=== PATIENT | female | born 1985 | race Caucasian/White ===

== ENCOUNTER 2017-08-22 14:39 | Emergency (ER) | payer BC ==
[~2017-08-22] VITALS: Ht 165.1 cm; Wt 55.4 kg
[~2017-08-22 14:39] MED LIST: ALPR1TAB3 PO; ALUMCHW2 PO; CALC500C3 PO; CYAN10002 IM; CYCL10TA6 PO; CYM/30 PO; FERR1TAB62 PO; OXYC-57 PO; PREN-83 PO; RANI150T3 PO
[2017-08-22 14:43] VITALS: Ht 165.1 cm; Wt 55.4 kg
[2017-08-22] MEDS ORDERED: SODIUM CHLORIDE 0.9% 1000ML 1,000 ML IV STA (15:31)
[2017-08-22] MEDS ORDERED: FAMOTIDINE 20MG/5ML IV PUSH IV STA (15:31)
[2017-08-22] MEDS ORDERED: PANTOprazole INJ 80 MG in DEXTROSE 5% 100ML 100 ML IV ONE (15:45)
[2017-08-22 15:51] VITALS: O2SAT 100
[2017-08-22] MEDS ORDERED: CYNI1000 INJ (16:30)
[2017-08-22] MEDS ORDERED: MULTTAB58 PO (16:30)
[2017-08-22 16:50] LABS: BASO % 0.2 %; BASO ABS # 0.01 K/uL (0-0.2); COMPLETE YES; EOS % 2.1 %; HEMATOCRIT 32.1 % (37-47); LYMPH % 47.1 %; LYMPH ABS # 2.21 K/uL (1.2-3.4); MEAN CELL VOLUME 90.9 fL (80-100); MEAN CORPUSCULAR HGB CONC 30.8 g/dl (32-36); MEAN PLATELET VOLUME 10.3 fL (7.4-10.4); MONO % 8.5 %; NEUT % 42.1 %; PLATELET COUNT 259 K/uL (130-400); RED BLOOD COUNT 3.53 M/uL (4.2-5.4); WHITE BLOOD COUNT 4.69 K/uL (4.8-10.8)
[2017-08-22 17:00] LABS: PROTHROMBIN TIME (PATIENT) 11.1 SECONDS (9.0-12.0)
[2017-08-22 17:17] LABS: ALT/SGPT 30 U/L (12-78); AST/SGOT 36 U/L (15-37); BLOOD UREA NITROGEN 11 mg/dl (7-18); BUN/CREATININE RATIO 26.3 (10-20); CALCIUM 7.9 mg/dl (8.5-10.1); CARBON DIOXIDE 30 mmol/L (21-32); CHLORIDE 104 mmol/L (98-107); CREATININE 0.42 mg/dl (0.60-1.20); GLUCOSE 72 mg/dl (70-99); POTASSIUM 4.3 mmol/L (3.5-5.1); SODIUM 136 mmol/L (136-145)
[2017-08-22 17:20] LABS: ALKALINE PHOSPHATASE 79 U/L (45-117)
--- NOTE | 2017-08-22 17:58 | DIAGNOSTIC IMAGING REPORT ---
ABDOMEN 2VIEW W/PA CHEST RTN HISTORY: 32 years-old Female EVALUATE GI BLEED/OBSTRUCTION SERIES acute GI bleed COMPARISON: Chest radiograph 05/29/2016, CT 05/30/2016 TECHNIQUE: PA view of the chest with erect and supine views of the abdomen FINDINGS: Cardiomediastinal and hilar silhouettes are within normal limits. There is no pneumothorax, pleural effusion, focal airspace consolidation or overt pulmonary edema. Bones of the chest appear grossly intact. Cholecystectomy clips are noted. Suture material the left upper abdomen compatible with patient history of prior gastric bypass. There is moderate volume of formed stool throughout the colon. Mild gaseous distention of bowel within the right lower quadrant noted, likely large bowel. The bowel gas pattern overall appears nonobstructive. No pneumoperitoneum on the upright projection. No urolith. IMPRESSION: 1. No acute cardiopulmonary process. 2. Nonobstructive bowel gas pattern without pneumoperitoneum. 3. Mild gaseous distention of bowel within the right lower quadrant. 4. Moderate stool volume suggests constipation. The above report was generated using voice recognition software. It may contain grammatical, syntax or spelling errors. Electronically signed by: Marcos Hair M.D. 08/22/2017 5:57 PM Dictated Date/Time: 08/22/2017 5:54 PM
[2017-08-22 19:29] VITALS: BP 102/56; PULSE 76; TEMP 37.1; O2SAT 100
--- NOTE | 2017-08-23 00:23 | EMERGENCY ROOM VISIT NOTE ---
History First contact with patient: 15:15 Chief Complaint: ABDOMINAL PAIN Stated Complaint: STOMACH PAIN, FATIGUE History of Present Illness The patient is a 32 year old female who presents to the Emergency Room with complaints of a possible GI bleed, fatigue, nausea, vomiting and epigastric pain. The patient reports that she has had a prior history of gastric bypass surgery approximately 8 years ago. She has had for GI bleeds in the past 4 years. Her last endoscopy was in May and August of last year. Her last 2 GI bleeds have required blood transfusions. Her gastric bypass was performed by Dr. Kiran at [facility] in [place]. She follows up locally with Dr. Galdamez. The patient reports fatigue and leg weakness. She has been unable to keep her medicines down because of nausea and vomiting, and reports feeling extremely dehydrated. She denies any fevers or chills, chest pain or cough. She denies any significant pain radiating into the back. Her stools have been melanotic. She has decreased well put because of her prior history of gastric pouch and poor intake recently. She reports that the pain is constant, and rates her discomfort a 6 out of 10. Review of Systems HEENT: Denies visual problems, hearing loss, tinnitus. Denies difficulty swallowing or oral lesions. PULMONARY: Denies cough, shortness of breath, sputum production or hemoptysis. CARDIOVASCULAR: Denies chest pain, palpitations, dyspnea on exertion, orthopnea or peripheral edema. GASTROINTESTINAL: See history of present illness. GENITOURINARY: Denies dysuria, frequency, urgency or nocturia. NEUROLOGIC: Denies history of epilepsy, CVA, TIA or chronic headaches. MUSCULOSKELETAL: Denies history of joint tenderness/swelling. SKIN: Denies rashes or lesions. PSYCHIATRIC: Denies history of depression or mental illness. ENDOCRINE: Denies history of diabetes or thyroid disorders. Past Medical/Surgical History Medical Problems: (1) Symptomatic anemia (2) Ulcer (3) Upper GI bleed Surgical Problems: (1) History of cholecystectomy (2) S/P gastric bypass Family History Diabetes mellitus FH: gallbladder disease Hypertension Social History Smoking Status: Current Every Day Smoker Alcohol Use: none Drug Use: none Marital Status: Housing Status: lives with family Occupation Status: employed Current/Historical Medications Scheduled Cyanocobalamin (Cyanocobalamin), 1,000 MCG INJ Q3MO Duloxetine HCl (Cymbalta), 30 MG PO QAM Ferrous Sulfate (Ferrous Sulfate), 325 MG PO BID Multiple Vitamin (Multivitamin), 1 TAB PO DAILY Ranitidine Hcl (Zantac), 150 MG PO BID Scheduled PRN Alprazolam (Xanax), 1 MG PO BID PRN for Anxiety Cyclobenzaprine Hcl (Flexeril), 10 MG PO TID PRN for Muscle Spasm Allergies Coded Allergies: No Known Allergies (Unverified , 08/22/17) Physical Exam Vital Signs Date Time Temp Pulse Resp B/P (MAP) Pulse Ox O2 Delivery O2 Flow Rate FiO2 08/22/17 19:29 37.1 76 16 102/56 100 08/22/17 18:33 76 16 102/56 100 Room Air 08/22/17 17:00 79 16 98/49 100 Room Air 08/22/17 16:46 80 15 110/49 98 Room Air 08/22/17 16:14 82 08/22/17 15:51 100 Room Air 08/22/17 14:43 37.1 113 18 103/53 98 Room Air Physical Exam CONSTITUTIONAL: Healthy and well nourished. Alert and oriented X 3 with positive affect. Patient appears in mild discomfort. HEENT: Normocephalic, atraumatic. Pupils equal, round and reactive. No scleral icterus. Conjunctivae are pale. OROPHARYNX: Mucous membranes are dry. No posterior pharyngeal erythema or tonsillar hypertrophy/exudates. NECK: Full active range of motion without discomfort. No nuchal rigidity. RESPIRATORY: Clear to auscultation bilaterally with no wheezing, crackles, rhonchi or stridor. CARDIOVASCULAR: Tachycardic with no murmurs, rubs or gallops. GASTROINTESTINAL: Bowel sounds present in all quadrants. Patient has epigastric tenderness to palpation without obvious hepatosplenomegaly or other palpable masses. No hypertympany or fluid wave. No abdominal rigidity, guarding or rebound. Negative CVA tenderness. Negative McBurney's point tenderness. Stool Hemoccult was performed by me and was positive. MUSCULOSKELETAL: Full range of motion of all joints without discomfort. INTEGUMENTARY: No rash or other significant dermatologic conditions noted. HEMATOLOGIC: No ecchymosis or petechiae. NEUROLOGIC: No focal neurologic deficits noted. Medical Decision & Procedures ER Provider Diagnostic Interpretation: My interpretation of an ECG shows a normal sinus rhythm of [address] elevation or other conduction abnormality. My interpretation of an abdomen obstruction series with a PA chest does not show any pneumoperitoneum or evidence for obstruction. The patient does have moderate constipation. Radiologist report is as follows: ABDOMEN 2VIEW W/PA CHEST RTN HISTORY: 32 years-old Female EVALUATE GI BLEED/OBSTRUCTION SERIES acute GI bleed COMPARISON: Chest radiograph 05/29/2016, CT 05/30/2016 TECHNIQUE: PA view of the chest with erect and supine views of the abdomen FINDINGS: Cardiomediastinal and hilar silhouettes are within normal limits. There is no pneumothorax, pleural effusion, focal airspace consolidation or overt pulmonary edema. Bones of the chest appear grossly intact. Cholecystectomy clips are noted. Suture material the left upper abdomen compatible with patient history of prior gastric bypass. There is moderate volume of formed stool throughout the colon. Mild gaseous distention of bowel within the right lower quadrant noted, likely large bowel. The bowel gas pattern overall appears nonobstructive. No pneumoperitoneum on the upright projection. No urolith. IMPRESSION: 1. No acute cardiopulmonary process. 2. Nonobstructive bowel gas pattern without pneumoperitoneum. 3. Mild gaseous distention of bowel within the right lower quadrant. 4. Moderate stool volume suggests constipation. Laboratory Results 08/22/17 16:24 Red Blood Count 3.53, Mean Corpuscular Volume 90.9, Mean Corpuscular Hemoglobin 28.0, Mean Corpuscular Hemoglobin Concent 30.8, Mean Platelet Volume 10.3, Neutrophils (%) (Auto) 42.1, Lymphocytes (%) (Auto) 47.1, Monocytes (%) (Auto) 8.5, Eosinophils (%) (Auto) 2.1, Basophils (%) (Auto) 0.2, Neutrophils # (Auto) 1.97, Lymphocytes # (Auto) 2.21, Monocytes # (Auto) 0.40, Eosinophils # (Auto) 0.10, Basophils # (Auto) 0.01 08/22/17 16:24 Test 08/22/17 16:24 White Blood Count 4.69 K/uL (4.8-10.8) Red Blood Count 3.53 M/uL (4.2-5.4) Hemoglobin 9.9 g/dL (12.0-16.0) Hematocrit 32.1 % (37-47) Mean Corpuscular Volume 90.9 fL (80-100) Mean Corpuscular Hemoglobin 28.0 pg (25-34) Mean Corpuscular Hemoglobin Concent 30.8 g/dl (32-36) Platelet Count 259 K/uL (130-400) Mean Platelet Volume 10.3 fL (7.4-10.4) Neutrophils (%) (Auto) 42.1 % Lymphocytes (%) (Auto) 47.1 % Monocytes (%) (Auto) 8.5 % Eosinophils (%) (Auto) 2.1 % Basophils (%) (Auto) 0.2 % Neutrophils # (Auto) 1.97 K/uL (1.4-6.5) Lymphocytes # (Auto) 2.21 K/uL (1.2-3.4) Monocytes # (Auto) 0.40 K/uL (0.11-0.59) Eosinophils # (Auto) 0.10 K/uL (0-0.5) Basophils # (Auto) 0.01 K/uL (0-0.2) RDW Standard Deviation 52.2 fL (36.4-46.3) RDW Coefficient of Variation 15.7 % (11.5-14.5) Immature Granulocyte % (Auto) 0.0 % Immature Granulocyte # (Auto) 0.00 K/uL (0.00-0.02) Prothrombin Time 11.1 SECONDS (9.0-12.0) Prothromb Time International Ratio 1.0 (0.9-1.1) Activated Partial Thromboplast Time 25.1 SECONDS (21.0-31.0) Partial Thromboplastin Ratio 1.0 Anion Gap 2.0 mmol/L (3-11) Est Creatinine Clear Calc Drug Dose 165.1 ml/min Estimated GFR () > 150.0 Estimated GFR (Non- 133.7 BUN/Creatinine Ratio 26.3 (10-20) Calcium Level 7.9 mg/dl (8.5-10.1) Total Bilirubin 0.2 mg/dl (0.2-1) Direct Bilirubin 0.1 mg/dl (0-0.2) Aspartate Amino Transf (AST/SGOT) 36 U/L (15-37) Alanine Aminotransferase (ALT/SGPT) 30 U/L (12-78) Alkaline Phosphatase 79 U/L (45-117) Total Creatine Kinase 120 U/L (26-192) Total Protein 5.2 gm/dl (6.4-8.2) Albumin 2.7 gm/dl (3.4-5.0) Lipase 223 U/L (73-393) The above labs were reviewed. Hemoglobin is 9.9. The patient has no increased white count. BUN and creatinine are normal. Coagulopathy studies are also normal. Medications Administered Medications (Trade) Dose Ordered Sig/Dc Route Start Time Stop Time Status Last Admin Dose Admin Sodium Chloride 1,000 ml @ 999 mls/hr Q1H1M STAT IV 08/22/17 15:31 08/22/17 16:31 DC 08/22/17 16:44 999 MLS/HR Famotidine (Pepcid 20mg Iv Push) 20 mg ONE STAT IV 08/22/17 15:31 08/22/17 15:35 DC 08/22/17 16:45 20 MG Pantoprazole Sodium 80 mg/ Dextrose 120 ml @ 400 mls/hr NOW ONCE IV 08/22/17 15:45 08/22/17 16:02 DC 08/22/17 16:45 400 MLS/HR Procedure 1. IV hydration: Normal saline 1 L bolus 2. IV medications: Pepcid 20 mg and Protonix 80 mg IV push ED Course Patient history and physical exam were performed. Nurse's notes were reviewed. Vital signs were reviewed, showing a blood pressure of 103/53. The patient is tachycardic at 113 bpm. O2 saturation and oral temperature are normal. IV access was established, and labs were drawn. The patient was hydrated with normal saline, and was administered IV Protonix and Pepcid. The patient refused any analgesics or antiemetics. ECG and abdomen obstruction series with a PA chest view were normal, showing no evidence for obstruction. The patient does have moderate constipation. Review of labs shows a hemoglobin of 9.9, otherwise remaining labs, including creatinine are normal. The case was then further discussed with Dr. Yadav, ED attending physician and Dr. Galdamez. He agrees that the patient does not warrant emergent EGD studies. He suggested MiraLAX use, and close follow-up with Dr. Galdamez. This information was relayed back to the patient, who will call Dr. Galdamez's office tomorrow. She was instructed to return to the emergency department for any progressively worsening pain or other concerning symptoms such as palpitations, chest pain, profuse rectal bleeding or coffee-ground emesis. 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 She reports that she would rather take Zantac at this point. Medical Decision Patient presents to the emergency department with complaint of symptomatic rectal bleeding. It is noted that her hemoglobin today is 9.9, which is actually improved since her last testing last week. She does have a positive stool Hemoccult, certainly concerning for a gastric ulcer. She also has constipation on x-rays which may also be factoring into her pain. I do feel that the patient is safe for outpatient GI follow-up and probable repeat nonemergent EGD. She was instructed to return to the emergency department for any worsening symptoms. [place] Drug Monitoring Program Search Results: patient reviewed within database, no issues identified Impression Primary Impression: Upper GI bleed Additional Impression: Constipation Departure Information Referrals No Doctor, Assigned (PCP) Patient Instructions My [facility] Problem Qualifiers Additional Impression: Constipation Constipation type: other constipation type Qualified Codes: K59.09 - Other constipation
== END 2017-08-22 19:30 | disposition home or self-care (01) ==
LOC: C.EDB 14:41
DX: K92.2 Gastrointestinal hemorrhage, unspecified (principal); K59.09 Other constipation; Z98.84 Bariatric surgery status; Z90.49 Acquired absence of other specified parts of digestive tract; Z83.3 Family history of diabetes mellitus; Z82.49 Family history of ischemic heart disease and other diseases of the circulatory system; F17.210 Nicotine dependence, cigarettes, uncomplicated; Z79.899 Other long term (current) drug therapy

== ENCOUNTER 2017-08-31 12:24 | Emergency (ER) | payer BC ==
[~2017-08-31] VITALS: Ht 157.5 cm; Wt 54.2 kg
[~2017-08-31 12:24] MED LIST changes: -ALUMCHW2 PO; -CALC500C3 PO; -CYAN10002 IM; +CYNI1000 INJ; +MULTTAB58 PO; -OXYC-57 PO; -PREN-83 PO
[2017-08-31 12:35] VITALS: TEMP 37; Ht 157.5 cm; Wt 54.2 kg
--- NOTE | 2017-08-31 13:22 | EMERGENCY ROOM VISIT NOTE ---
History Report prepared by Madiha: Natasha Jacobs Under the Supervision of: Dr. Al Gregory D.O. First contact with patient: 13:00 Chief Complaint: WEAKNESS Stated Complaint: PALE, WEAK Nursing Triage Summary: Recent dx of stomach ulcer, presenting with weakness, bloody stool, & epigastric pain. History of Present Illness The patient is a 32 year old female who presents to the Emergency Room with complaints of persistent weakness that began a few days ago. The patient states that she went for a check up and they told her she was paler than usual. The patient was seen in the Emergency Department for a bleeding ulcer. She notes a history of bleeding ulcers. The patient states that her ulcers cause abdominal pain and melena. She notes that she has an appointment with a GI specialist in one hour. Source of History: patient Onset: few days ago Position: other (global) Quality: other (weakness) Timing: other (persistent) Review of Systems As above otherwise negative for 10 systems Past Medical & Surgical Medical Problems: (1) Symptomatic anemia (2) Ulcer (3) Upper GI bleed Surgical Problems: (1) History of cholecystectomy (2) S/P gastric bypass Family History Diabetes mellitus FH: gallbladder disease Hypertension Social History Smoking Status: Never Smoker Alcohol Use: none Drug Use: none Marital Status: Housing Status: lives with family Occupation Status: employed Current/Historical Medications Scheduled Cyanocobalamin (Cyanocobalamin), 1,000 MCG INJ Q3MO Duloxetine HCl (Cymbalta), 30 MG PO QAM Ferrous Sulfate (Ferrous Sulfate), 325 MG PO BID Multiple Vitamin (Multivitamin), 1 TAB PO DAILY Ranitidine Hcl (Zantac), 150 MG PO BID Scheduled PRN Alprazolam (Xanax), 1 MG PO BID PRN for Anxiety Cyclobenzaprine Hcl (Flexeril), 10 MG PO TID PRN for Muscle Spasm Allergies Coded Allergies: No Known Allergies (Unverified , 08/31/17) Physical Exam Vital Signs Date Time Temp Pulse Resp B/P (MAP) Pulse Ox O2 Delivery O2 Flow Rate FiO2 08/31/17 13:32 96 18 95/59 100 08/31/17 12:35 37.0 96 18 96/64 98 Room Air Physical Exam CONSTITUTIONAL/VITAL SIGNS: Reviewed / noted above. GENERAL: Non-toxic in appearance. INTEGUMENTARY: Warm, dry, and [place]. HEAD: Normocephalic. EYES: without scleral icterus or trauma. ENT/OROPHARYNX: clear and moist. LYMPHADENOPATHY/NECK: Is supple without lymphadenopathy or meningismus. RESPIRATORY: Lungs clear and equal. CARDIOVASCULAR: Regular rate and rhythm. GI/ABDOMEN: Soft and nontender. No organomegaly or pulsatile mass. No rebound or guarding. Normal bowel sounds. EXTREMITIES: Warm and well perfused. BACK: No CVA tenderness. NEUROLOGICAL: Intact without focal deficits. PSYCHIATRIC: normal affect. MUSCULOSKELETAL: Normally developed with good muscle tone. Medical Decision & Procedures Laboratory Results Test 08/31/17 13:15 Bedside Hemoglobin 11.6 g/dl (12.0-16.0) Bedside Hematocrit 34 % (37-47) Bedside Sodium 140 mEq/L (135-144) Bedside Potassium 3.8 mEq/L (3.3-5.0) Bedside Chloride 102 mEq/L (101-112) Bedside Total CO2 26 mEq/l (24-31) Anion Gap 16.0 mmol/L (16-25) Bedside Blood Urea Nitrogen 17 mg/dl (7-18) Bedside Creatinine 0.6 mg/dl (0.6-1.3) Bedside Glucose (other) 76 mg/dl (70-99) Bedside Ionized Calcium (Enrique) 1.16 mmol/l (1.12-1.32) ED Course 1303: Previous medical records were reviewed. The patient was evaluated in room A4. A complete history and physical examination was performed. 1333: On reevaluation, the patient is resting comfortably. I discussed the results and findings with the patient. She verbalized agreement of the treatment plan. The patient was discharged home. Medical Decision Differential includes acute coronary syndrome, myocardial infarction, CVA, TIA, anemia, infection, pneumonia, UTI, pyelonephritis, poor nutrition, dehydration, electrolyte disturbance,hypoglycemia. This is a 32-year-old female who presents to the ED with a chief complaint of generalized weakness. She states that she has an appointment to see her GI specialist at 2 PM today. She was referred here to check her hemoglobin to make sure that she is not becoming anemic. Her hemoglobin on 08/22 was 9.9. An i-STAT lab revealed a hemoglobin today 11.6. Her chemistry panel was unremarkable. The patient also has an EKG that shows a normal sinus rhythm at a rate of 72. After examining the patient, I feel the patient is stable for discharge and will make it to her appointment with a GI specialist for outpatient follow-up. Medication Reconcilliation Current Medication List: was personally reviewed by me Blood Pressure Screening Patient's blood pressure: Normal blood pressure Impression Primary Impression: Weak Scribe Attestation The scribe's documentation has been prepared under my direction and personally reviewed by me in its entirety. I confirm that the note above accurately reflects all work, treatment, procedures, and medical decision making performed by me. Departure Information Dispostion Home / Self-Care Referrals No Doctor, Assigned (PCP) Forms HOME CARE DOCUMENTATION FORM, IMPORTANT VISIT INFORMATION Patient Instructions My [facility] Additional Instructions Follow-up with your GI specialist today as scheduled. Your hemoglobin today is 11.6. On August [id number] it was 9.9.
[2017-08-31 13:28] LABS: ISTAT CREATININE 0.6 mg/dl (0.6-1.3); ISTAT HEMOGLOBIN 11.6 g/dl (12.0-16.0); ISTAT IONIZED CALCIUM 1.16 mmol/l (1.12-1.32)
[2017-08-31 13:32] VITALS: BP 95/59; PULSE 96; O2SAT 100
== END 2017-08-31 13:32 | disposition home or self-care (01) ==
LOC: C.EDB 12:26 → C.EDA 13:32
DX: R53.1 Weakness (principal); Z98.84 Bariatric surgery status; Z90.49 Acquired absence of other specified parts of digestive tract; Z83.3 Family history of diabetes mellitus; Z82.49 Family history of ischemic heart disease and other diseases of the circulatory system

== ENCOUNTER → 2017-09-26 | Day surgery (SDC) | payer BC ==
[2017-09-21 11:08] VITALS: Ht 165.1 cm; Wt 54.5 kg
[~2017-09-26] VITALS: Ht 165.1 cm; Wt 54.5 kg
[~2017-09-26] MED LIST changes: +LIDOCAINE HCL 2% 2 ML VIAL (20MG/ML) ONE; +MIDAZOLAM HCL 1 MG/ML 2ML VIAL ONE; +ONDANSETRON INJ 2 MG/ML 2 ML VIAL ONE; +PROPOFOL IV EMULSION 10 MG/ML 20 ML VIAL IV ONE; +PRT/20 PO; +SODIUM CHLORIDE 0.9% 500ML 500 ML IV ONE; +SUCR1TAB29 PO
--- NOTE | 2017-09-26 11:02 | Endo History and Physical ---
History & Physical Date of Service: Sep 26, 2017. Chief Complaint: Epigastric abdominal pain, Gastric ulcer Referring Physician: Fanny Leon History of Present Illness 32 yo CF who presents for EGD secondary to epigastric abdominal pain and gastric ulcer. Past Surgical History Hx Cardiac Surgery: No Hx Internal Defibrillator: No Hx Pacemaker: No Hx Abdominal Surgery: Yes (GASTRIC BYPASS(10YRSAGO - 80-100 POUNDS), JERI) Hx of Implantable Prosthesis: No Hx Post-Op Nausea and Vomiting: No Hx Cancer Surgery: No Hx Thoracic Surgery: No Hx Orthopedic: No Hx Urinary Tract Surgery: No Family History None Social History Smoking Status: Current Every Day Smoker Hx Substance Use: No Hx Alcohol Use: No Allergies Coded Allergies: No Known Allergies (Unverified , 09/21/17) Current Medications Reported Home Medications Medications Dose Route/Sig Max Daily Dose Days Date Category Multivitamin (Multiple Vitamin) 1 Tab Tab 1 Tab PO DAILY 08/22/17 Reported Cyanocobalamin 1,000 Mcg/Ml Inj 1,000 Mcg INJ Q3MO 08/22/17 Reported Xanax (Alprazolam) 1 Mg Tab 1 Mg PO BID PRN 05/21/16 Reported Zantac (Ranitidine HCl) 150 Mg Tab 150 Mg PO BID 05/21/16 Reported Cymbalta (Duloxetine HCl) 30 Mg Cap 30 Mg PO QAM 05/21/16 Reported Ferrous Sulfate 325 Mg Tab 325 Mg PO BID 05/21/16 Reported Flexeril (Cyclobenzaprine Hcl) 10 Mg Tab 10 Mg PO TID PRN 05/21/16 Reported Vital Signs Weight (Kilograms): 54.55 Height (Feet): 5 Height (Inches): 5 Physical Exam General Appearance: WD/WN, no apparent distress Respiratory/Chest: Auscultation: breath sounds normal Cardiovascular: Heart Auscultation: RRR Abdomen: Bowel Sounds: normal Inspection & Palpation: soft, non-distended, no tenderness, guarding & rebound Assessment and Plan Assessment: 32 yo CF who presents for EGD secondary to epigastric abdominal pain and gastric ulcer. Plan: Proceed with EGD.
--- NOTE | 2017-09-26 11:35 | GI REPORT ---
Procedure Date: 09/26/2017 11:13 AM Procedure: Upper GI endoscopy Indications: Epigastric abdominal pain Medicines: Monitored Anesthesia Care Complications: No immediate complications. Estimated Blood Loss: Estimated blood loss: none. Procedure: Pre-Anesthesia Assessment: - Prior to the procedure, a History and Physical was performed, and patient medications and allergies were reviewed. The patient's tolerance of previous anesthesia was also reviewed. The risks and benefits of the procedure and the sedation options and risks were discussed with the patient. All questions were answered, and informed consent was obtained. Prior Anticoagulants: The patient has taken no previous anticoagulant or antiplatelet agents. ASA Grade Assessment: II - A patient with mild systemic disease. After reviewing the risks and benefits, the patient was deemed in satisfactory condition to undergo the procedure. After obtaining informed consent, the endoscope was passed under direct vision. Throughout the procedure, the patient's blood pressure, pulse, and oxygen saturations were monitored continuously. The scope was introduced through the mouth, and advanced to the second part of duodenum. The upper GI endoscopy was accomplished without difficulty. The patient tolerated the procedure well. Findings: The esophagus was normal. Evidence of a Peña-en-Y gastrojejunostomy was found. The gastrojejunal anastomosis was characterized by ulceration. This was traversed. The [id number] limb was characterized by ulceration. The [id number] limb was not examined as it could not be found. Biopsies were taken with a cold forceps for histology. The examined jejunum was normal. Impression: - Normal esophagus. - Peña-en-Y gastrojejunostomy with gastrojejunal anastomosis characterized by ulceration. Biopsied. - Normal examined jejunum. Recommendation: - Resume previous diet. - Continue present medications. - Use sucralfate suspension 1 gram PO QID for 1 month. - Await pathology results. - Return to primary care physician as previously scheduled. Kiko Galdamez, DO 09/26/2017 11:35:15 AM This report has been signed electronically. Note Initiated On: 09/26/2017 11:13 AM I attest to the content of the Intraoperative Record and orders documented therein, exceptions below
--- NOTE | 2017-09-26 11:37 | Discharge Instructions ---
Endoscopy Patient Instructions Date / Procedure(s) Performed Sep 26, 2017. EGD Allergy Information Coded Allergies: No Known Allergies (Unverified , 09/21/17) Discharge Date / Findings Sep 26, 2017. Anastomotic ulcer s/p Peña-En-Y gastric bypass Medication Instructions 1) Start Carafate 1g by mouth Four times daily prior to each meal and at bedtime for 1 month 2) OK to resume all other medications today as prescribed Reported Home Medications Medications Dose Route/Sig Max Daily Dose Days Date Category Multivitamin (Multiple Vitamin) 1 Tab Tab 1 Tab PO DAILY 08/22/17 Reported Cyanocobalamin 1,000 Mcg/Ml Inj 1,000 Mcg INJ Q3MO 08/22/17 Reported Xanax (Alprazolam) 1 Mg Tab 1 Mg PO BID PRN 05/21/16 Reported Zantac (Ranitidine HCl) 150 Mg Tab 150 Mg PO BID 05/21/16 Reported Cymbalta (Duloxetine HCl) 30 Mg Cap 30 Mg PO QAM 05/21/16 Reported Ferrous Sulfate 325 Mg Tab 325 Mg PO BID 05/21/16 Reported Flexeril (Cyclobenzaprine Hcl) 10 Mg Tab 10 Mg PO TID PRN 05/21/16 Reported Provider Instructions Activity Restrictions - No exercising or heavy lifting for 24 hours. - Do not drink alcohol the day of the procedure. - Do not drive a car or operate machinery until the day after the procedure. - Do not make any important decisions or sign important papers in 24 hours after the procedure. Following Day: - Return to full activity which may include returning to work/school. Diet Start your diet with liquids and light foods (jello, soup, juice, toast). Then eat your usual diet if not nauseated. Treatment For Common After Affects For mild abdominal pain, bloating, or excessive gas: - Rest - Eat lightly - Lie on right side Follow-Up Information Follow-up with [facility] as scheduled Anesthesia Information What You Should Know You have had a procedure that required some medicine to reduce anxiety and discomfort. This treatment is called moderate sedation. After receiving the treatment, you may be sleepy, but you will be able to breathe on your own. The effects of the treatment may last for several hours. Follow these instructions along with Activity/Diet recommendations noted above: * Do NOT do anything where dizziness or clumsiness would be dangerous. * Rest quietly at home today, then you can be up and about tomorrow. * Have a responsible person stay with you the rest of today. * You may have had an I.V. today. If so, you may take the dressing off later today. Recommendations Call your doctor if: * Trouble breathing * Continuous vomiting for more than 24 hours * Temperature above 101 degrees * Severe abdominal pain or bloating * Pain not relieved by pain medicine ordered * There is increased drainage or redness from any incision * A large amount of rectal bleeding greater than 2-3 tablespoons. (If you had a polyp/s removed or have hemorrhoids, a small amount of blood - from the rectum is to be expected.) * You have any unanswered questions or concerns. IN THE EVENT OF A SERIOUS EMERGENCY, GO TO THE NEAREST EMERGENCY ROOM Your discharge instructions were prepared by provider Kiko Galdamez. Patient Instructions Signature Page Elizabeth Ramos Patient (or Guardian) Signature/Date: I have read and understand the instructions given to me by my caregivers. Caregiver/RN/Doctor Signature/Date: The above-named patient and/or guardian has received patient instructions on this date. + Original Patient Signature Page (only) stays with chart. Please make copy for patient.
--- NOTE | 2017-09-26 11:45 | Anesthesiology Progress Note ---
Anesthesia Post Op Note Date & Time Sep 26, 2017 at 11:45 Vital Signs Vital Signs Past 12 Hours Date Time Temp Pulse Resp B/P (MAP) Pulse Ox O2 Delivery O2 Flow Rate FiO2 09/26/17 11:35 103 20 93/58 (70) 98 Room Air 09/26/17 11:08 37.0 106 20 103/66 (78) 100 Room Air Notes Mental Status: alert / awake / arousable, participated in evaluation Pt Amnestic to Procedure: Yes Nausea / Vomiting: adequately controlled Pain: adequately controlled Airway Patency, RR, SpO2: stable & adequate BP & HR: stable & adequate Hydration State: stable & adequate Anesthetic Complications: no major complications apparent
[2017-09-26 12:04] VITALS: BP 98/77; PULSE 102; O2SAT 100
== END | disposition home or self-care (01) ==
LOC: C.GI 10:30
PROVIDERS: ATTEND Internal Medicine
DX: R10.13 Epigastric pain (principal); K25.9 Gastric ulcer, unspecified as acute or chronic, without hemorrhage or perforation; Z98.84 Bariatric surgery status; Z90.49 Acquired absence of other specified parts of digestive tract; F17.200 Nicotine dependence, unspecified, uncomplicated; F41.9 Anxiety disorder, unspecified; F32.9 Major depressive disorder, single episode, unspecified